=== PATIENT | female | born 1970 | race Caucasian/White ===

== ENCOUNTER 2017-09-11 14:54 | Emergency (ER) | payer SELFPAY ==
--- NOTE | 2017-09-11 15:18 | ER ---
Nurse's Notes [facility] Name: Sandy Tran Age: 46 yrs Sex: Female : 1970 Arrival Date: 09/11/2017 Time: 14:59 Bed Waiting Private MD: out of town, doctor Diagnosis: Presentation: 09/11 15:01 Presenting complaint: Patient states: i swallowed a bony part of a chicken that got hj stuck on my lower throat, it wont go down, it happened around yesterday afternoon;. Transition of care: patient was not received from another setting of care. Onset of symptoms was September 11, 2017. Care prior to arrival: None. 15:01 Method Of Arrival: Ambulatory hj 15:01 Acuity: JENNIFER 4 hj Triage Assessment: 15:05 General: Appears in no apparent distress. uncomfortable, Behavior is calm, cooperative, hj appropriate for age. Pain: Complains of pain in throat. 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 2 in. (157.48 cm); Pain 7/10; 15:05 Body Mass Index 38.77 (96.16 kg, 157.48 cm) hj ED Course: 14:59 Patient arrived in ED. mr 14:59 out of town, doctor is Private Physician. mr 15:02 Triage completed. hj 15:05 Arm band placed on left wrist. hj Administered Medications: No medications were administered Outcome: 15:17 Patient left the ED. pt Signatures: Melanie Colón RN RN pt Rosie Barrios mr Gary William RN RN hj Corrections: (The following items were deleted from the chart) 15:07 15:05 Pulse 79bpm; Resp 18bpm; Pulse Ox 100% RA; Temp 98.2F Temporal; 96.16 kg; Height hj 5 ft. 2 in.; BMI: 38.7; Pain 7/10; hj
== END 2017-09-11 15:17 | disposition left against medical advice (07) ==
LOC: ER 14:54
DX: Z53.21 Procedure and treatment not carried out due to patient leaving prior to being seen by health care provider (principal)
CPT/HCPCS: 99281

== ENCOUNTER 2018-06-03 10:47 | Emergency (ER) | payer SELFPAY ==
[2018-06-03] MEDS ORDERED: KETOROLAC 30 MG/ML INJ ONE (11:50)
[2018-06-03 12:13] LABS: Urine Bacteria <20 /HPF (<20); Urine Culture Reflex Order NOT NEEDED; Urine RBC <5 /HPF (NONE SEEN)
[2018-06-03 13:29] LABS: Urine Blood TRACE (NEG); Urine Glucose NEGATIVE (NEG); Urine Protein NEGATIVE (NEG); Urine Specific Gravity 1.025 (1.005-1.030); Urine pH 5.5 (5.0-7.0)
--- NOTE | 2018-06-03 13:36 | RAD REPORT ---
EXAM DESCRIPTION: CT - Abdomen Pelvis W Contrast - 06/03/2018 1:17 pm CLINICAL HISTORY: Abdominal pain. Left lower quadrant pain COMPARISON: None. TECHNIQUE: Computed axial tomography of the abdomen and pelvis was obtained. 100 cc Isovue-300 is ad ministered intravenously. Oral contrast was given. All CT scans are performed using dose optimization technique as appropriate and may include automated exposure control or mA/KV adjustment according to patient size. FINDINGS: The liver, spleen, pancreas, adrenals and kidneys appear unremarkable. The appendix is normal caliber. Diverticula stem from the colon. Moderate stranding is present adjacent to the sigmoid colon with celia rowing of wall. Small amount ascites is present within the pelvis. IMPRESSION: Moderate diverticulitis
[2018-06-03] MEDS ORDERED: FENTANYL CITR 100 MCG/2 ML ONE (14:01)
[2018-06-03] MEDS ORDERED: NA CHLORIDE 0.9% 1,000 ML ONE (14:01)
[2018-06-03] MEDS ORDERED: CEFOXITIN/SWI 1gm 1 GM/10 ML SYR ONE (14:01)
[2018-06-03 14:48] LABS: Absolute Lymphocytes (CBC) 0.9 K/uL (0.7-4.9); Absolute Monocytes 0.5 K/uL (0.1-1.3); Absolute Neutrophil 6.9 K/uL (1.8-8.0); Basophils % 0.2 % (0-1.3); Eosinophils % 0.6 % (0-4.4); Hematocrit 41.3 % (36.0-45.0); Lymphocytes % 11.1 % (15.3-44.8); MPV 10.6 fL (7.6-11.3); Monocytes % 6.3 % (3.3-12.3); RBC Red Blood Cell Count 4.78 M/uL (3.86-4.86)
--- NOTE | 2018-06-03 15:16 | EDPHYS ---
Physician Documentation [facility] Name: Sandy Tran Age: 47 yrs Sex: Female : 1970 Arrival Date: 06/03/2018 Time: 10:52 Bed 28 Private MD: out of town, doctor ED Physician Dov Spicer HPI: 06/03 14:12 The patient presents with abdominal pain in the left lower quadrant. Onset: The gs symptoms/episode began/occurred 2 day(s) ago, and became persistent. The symptoms do not radiate. Associated signs and symptoms: Pertinent negatives: nausea and vomiting, blood in stools, constipation, diarrhea. The symptoms are described as crampy, sharp. Modifying factors: The symptoms are alleviated by nothing, the symptoms are aggravated by nothing. Severity of pain: At its worst the pain was moderate in the emergency department the pain is unchanged. The patient has experienced similar episodes in the past, a few times. 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 - Social history:: Smoking status: Patient/guardian denies using tobacco, Patient uses alcohol. - Ebola Screening: : Patient negative for fever greater than or equal to 101.5 degrees Fahrenheit, and additional compatible Ebola Virus Disease symptoms Patient denies exposure to infectious person Patient denies travel to an Ebola-affected area in the 21 days before illness onset. ROS: 14:12 All other systems are negative. gs Exam: 14:12 Head/Face: Normocephalic, atraumatic. Eyes: Pupils equal round and reactive to light, gs extra-ocular motions intact. Lids and lashes normal. Conjunctiva and sclera are non-icteric and not injected. Cornea within normal limits. Periorbital areas with no swelling, redness, or edema. ENT: Nares patent. No nasal discharge, no septal abnormalities noted. Tympanic membranes are normal and external auditory canals are clear. Oropharynx with no redness, swelling, or masses, exudates, or evidence of obstruction, uvula midline. Mucous membranes moist. Neck: Trachea midline, no thyromegaly or masses palpated, and no cervical lymphadenopathy. Supple, full range of motion without nuchal rigidity, or vertebral point tenderness. No Meningismus. Chest/axilla: Normal chest wall appearance and motion. Nontender with no deformity. No lesions are appreciated. Cardiovascular: Regular rate and rhythm with a normal S1 and S2. No gallops, murmurs, or rubs. Normal PMI, no JVD. No pulse deficits. Respiratory: Lungs have equal breath sounds bilaterally, clear to auscultation and percussion. No rales, rhonchi or wheezes noted. No increased work of breathing, no retractions or nasal flaring. Back: No spinal tenderness. No costovertebral tenderness. Full range of motion. Skin: Warm, dry with normal turgor. Normal color with no rashes, no lesions, and no evidence of cellulitis. MS/ Extremity: Pulses equal, no cyanosis. Neurovascular intact. Full, normal range of motion. Neuro: Awake and alert, GCS 15, oriented to person, place, time, and situation. Cranial nerves II-XII grossly intact. Motor strength 5/5 in all extremities. Sensory grossly intact. Cerebellar exam normal. Normal gait. 14:12 Constitutional: The patient appears alert, awake. 14:12 Abdomen/GI: Palpation: moderate abdominal tenderness, in the left lower quadrant, rebound tenderness, is not appreciated. Vital Signs: 10:56 BP 105 / 57; Pulse 83; Resp 18; Temp 98.8(TE); Pulse Ox 100% on R/A; Weight 95.71 kg; hj Height 5 ft. 2 in. (157.48 cm); Pain 7/10; 12:00 BP 120 / 53; Pulse 71; Resp 16 S; Pulse Ox 97% on R/A; Pain 4/10; jl7 12:43 BP 115 / 63; Pulse 66; Resp 16 S; Pulse Ox 97% on R/A; jl7 14:00 BP 113 / 52; Pulse 65; Resp 16 S; Pulse Ox 100% on R/A; Pain 4/10; jl7 16:27 BP 116 / 65; Pulse 64; Resp 16 S; Pulse Ox 100% on R/A; Pain 3/10; jl7 10:56 Body Mass Index 38.59 (95.71 kg, 157.48 cm) hj MDM: 11:30 Patient medically screened. gs 14:12 Differential diagnosis: bowel obstruction, diverticulitis, non-specific abd pain, gs urinary tract infection. Data reviewed: vital signs, nurses notes, lab test result(s), radiologic studies. Counseling: I had a detailed discussion with the patient and/or guardian regarding: the historical points, exam findings, and any diagnostic results supporting the discharge/admit diagnosis, radiology results, the need for outpatient follow up. Response to treatment: the patient's symptoms have markedly improved after treatment. 06/03 10:54 Order name: Urine Culture [facility] 06/03 10:54 Order name: Urine Microscopic Only; Complete Time: 13:39 w 06/03 11:34 Order name: CBC with Diff; Complete Time: 15:14 gs 06/03 11:34 Order name: Basic Metabolic Panel; Complete Time: 13:39 gs 06/03 12:31 Order name: Urine Dipstick--Ancillary (enter results); Complete Time: 13:39 eb 06/03 12:31 Order name: Urine --Ancillary (enter results); Complete Time: 13:39 eb 06/03 10:54 Order name: Urine Dipstick-Ancillary (obtain specimen); Complete Time: 11:52 w 06/03 11:34 Order name: CT Abd/Pelvis - W/Contrast; Complete Time: 13:39 gs Administered Medications: 11:48 Drug: TORadol 30 mg Route: IVP; Site: right antecubital; ls4 11:52 Follow up: Response: No adverse reaction; Pain is decreased jl7 12:10 Follow up: Response: No adverse reaction; Pain is decreased ls4 13:58 Drug: fentaNYL (PF) 25 mcg Route: IVP; Site: right antecubital; ls4 14:30 Follow up: Response: No adverse reaction; Pain is decreased jl7 14:01 Drug: cefOXitin 1 grams Route: IVPB; Infused Over: 30 mins; Site: right antecubital; ls4 14:30 Follow up: Response: No adverse reaction; IV Status: Completed infusion jl7 Disposition: 06/03/18 15:15 Discharged to Home. Impression: Diverticular disease of large intestine without perforation or abscess. - Condition is Stable. - Discharge Instructions: Diverticulitis, [id number]. - Prescriptions for Flagyl 500 mg Oral Tablet - take 1 tablet by ORAL route every 6 hours for 10 days; 40 tablet. Keflex 500 mg Oral Capsule - take 1 capsule by ORAL route every 6 hours for 10 days; 40 capsule. Tylenol- Codeine #4 300-60 mg Oral Tablet - take 1 tablet by ORAL route every 6 hours As needed; 12 tablet. - Medication Reconciliation Form, Thank You Letter, Antibiotic Education, Prescription Opioid Use form. - Follow up: Hosea Lu MD; When: 2 - 3 days; Reason: Re-evaluation by your physician. Signatures: Dispatcher [employer] EDMS Colleen Kumar, LINK ASSEMBLER-C LINK ASSEMBLER-Csnw Gary William, RN RN hj Yaneth Garvey RN RN jl7 Dov Spicer MD MD Caitlin Soriano RN RN ls4 Corrections: (The following items were deleted from the chart) 16:29 15:15 06/03/2018 15:15 Discharged to Home. Impression: Diverticular disease of large jl7 intestine without perforation or abscess. Condition is Stable. Forms are Medication Reconciliation Form, Thank You Letter, Antibiotic Education, Prescription Opioid Use. Follow up: Hosea Lu; When: 2 - 3 days; Reason: Re-evaluation by your physician. gs
--- NOTE | 2018-06-03 15:16 | ER ---
Nurse's Notes [facility] Name: Sandy Tran Age: 47 yrs Sex: Female : 1970 Arrival Date: 06/03/2018 Time: 10:52 Bed 28 Private MD: out of town, doctor Diagnosis: Diverticular disease of large intestine without perforation or abscess Presentation: 06/03 10:52 Presenting complaint: Patient states: 2 days ago, i started pain on my L groin area, L hj lower abd; and it went bad yesterday, reports vomiting x 7, fever, and i felt swelling on that area; took hydrocodone last night around 11:30pm;. Transition of care: patient was not received from another setting of care. Onset of symptoms was June 03, 2018. Risk Assessment: Do you want to hurt yourself or someone else? Patient reports no desire to harm self or others. Initial Sepsis Screen: Does the patient meet any 2 criteria? No. Patient's initial sepsis screen is negative. Does the patient have a suspected source of infection? No. Patient's initial sepsis screen is negative. Care prior to arrival: None. 10:52 Method Of Arrival: Ambulatory 10:52 Acuity: JENNIFER 3 hj Triage Assessment: 10:55 General: Appears in no apparent distress. uncomfortable, Behavior is calm, cooperative, hj appropriate for age. Pain: Complains of pain in abdomen Pain currently is 7 out of 10 on a pain scale. 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 - Social history:: Smoking status: Patient/guardian denies using tobacco, Patient uses alcohol. - Ebola Screening: : Patient negative for fever greater than or equal to 101.5 degrees Fahrenheit, and additional compatible Ebola Virus Disease symptoms Patient denies exposure to infectious person Patient denies travel to an Ebola-affected area in the 21 days before illness onset. Screenin:55 Abuse screen: Denies threats or abuse. Denies injuries from another. Nutritional hj screening: No deficits noted. Tuberculosis screening: No symptoms or risk factors identified. Fall Risk None identified. Assessment: 11:35 General: Appears in no apparent distress. uncomfortable, Behavior is calm, cooperative, jl7 appropriate for age. Pain: Complains of pain in left lower quadrant Pain radiates to anterior aspect of left lateral abdomen Pain currently is 7 out of 10 on a pain scale. at worst was 10 out of 10 on a pain scale. Quality of pain is described as sharp, Pain began 2 weeks ago Is continuous. Neuro: Level of Consciousness is awake, alert, obeys commands, Oriented to person, place, time, situation. Cardiovascular: Patient's skin is warm and dry. Respiratory: Airway is patent Respiratory effort is even, unlabored, Respiratory pattern is regular, symmetrical. GI: Reports nausea, vomiting, Patient currently denies diarrhea. : No signs and/or symptoms were reported regarding the genitourinary system. EENT: No signs and/or symptoms were reported regarding the EENT system. Derm: Skin is pink, warm \T\ dry. Musculoskeletal: No signs and/or symptoms reported regarding the musculoskeletal system. 12:43 Reassessment: Pt laying in bed with eyes closed, respirations even and unlabored, no jl7 signs of distress noted at this time. 14:00 Reassessment: Patient appears in no apparent distress at this time. No changes from jl7 previously documented assessment. Patient and/or family updated on plan of care and expected duration. Pain level reassessed. Patient is alert, oriented x 3, equal unlabored respirations, skin warm/dry/pink. 15:41 Reassessment: Pt will be discharged once fluids are done infusing. jl7 Vital Signs: 10:56 BP 105 / 57; Pulse 83; Resp 18; Temp 98.8(TE); Pulse Ox 100% on R/A; Weight 95.71 kg; hj Height 5 ft. 2 in. (157.48 cm); Pain 7/10; 12:00 BP 120 / 53; Pulse 71; Resp 16 S; Pulse Ox 97% on R/A; Pain 4/10; jl7 12:43 BP 115 / 63; Pulse 66; Resp 16 S; Pulse Ox 97% on R/A; jl7 14:00 BP 113 / 52; Pulse 65; Resp 16 S; Pulse Ox 100% on R/A; Pain 4/10; jl7 16:27 BP 116 / 65; Pulse 64; Resp 16 S; Pulse Ox 100% on R/A; Pain 3/10; jl7 10:56 Body Mass Index 38.59 (95.71 kg, 157.48 cm) hj ED Course: 10:52 Patient arrived in ED. sb2 10:52 out of town, doctor is Private Physician. sb2 10:54 Triage completed. hj 10:55 Arm band placed on right wrist. hj 10:55 Patient has correct armband on for positive identification. Placed in gown. Bed in low hj position. Call light in reach. Side rails up X 1. 11:17 Yaneth Garvey, JULIA is Primary Nurse. jl7 11:18 Dov Spicer MD is Attending Physician. gs 11:35 Pulse ox on. NIBP on. jl7 11:49 Initial lab(s) drawn, by me, sent to lab. Urine collected: clean catch specimen. ls4 Inserted saline lock: 20 gauge in right antecubital area, using aseptic technique. Blood collected. 13:12 CT completed. Patient tolerated procedure well. Patient moved to CT via stretcher. jg6 Patient moved back from CT. 13:[address] jg6 13:18 CT Abd/Pelvis - W/Contrast In Process Unspecified. EDMS 15:14 Hosea Lu MD is Referral Physician. gs 16:27 No provider procedures requiring assistance completed. IV discontinued, intact, jl7 bleeding controlled, No redness/swelling at site. Pressure dressing applied. Administered Medications: 11:48 Drug: TORadol 30 mg Route: IVP; Site: right antecubital; ls4 11:52 Follow up: Response: No adverse reaction; Pain is decreased jl7 12:10 Follow up: Response: No adverse reaction; Pain is decreased ls4 13:58 Drug: fentaNYL (PF) 25 mcg Route: IVP; Site: right antecubital; ls4 14:30 Follow up: Response: No adverse reaction; Pain is decreased jl7 14:01 Drug: cefOXitin 1 grams Route: IVPB; Infused Over: 30 mins; Site: right antecubital; ls4 14:30 Follow up: Response: No adverse reaction; IV Status: Completed infusion jl7 Outcome: 15:15 Discharge ordered by . gs 16:27 Discharged to home ambulatory. jl7 16:27 Condition: stable 16:27 Discharge instructions given to patient, Instructed on discharge instructions, follow up and referral plans. medication usage, Demonstrated understanding of instructions, follow-up care, medications, Prescriptions given X 3. 16:29 Patient left the ED. jl7 Signatures: Dispatcher [employer] EDMS Gary William, RN RN hj Yaneth Garvey RN RN jl7 oDv Spicer MD MD gs Billeau, Sheri sb2 Garcia, Jessica j6 Caitlin Soriano RN RN ls4 Corrections: (The following items were deleted from the chart) 10:58 10:56 Pulse 83bpm; Resp 18bpm; Pulse Ox 100% RA; Temp 98.8F Temporal; 95.71 kg; Height hj 5 ft. 2 in.; BMI: 38.5; Pain 10; hj
== END 2018-06-03 16:29 | disposition home or self-care (01) ==
LOC: ER 10:47
DX: K57.30 Diverticulosis of large intestine without perforation or abscess without bleeding (principal)
CPT/HCPCS: 36415; 74177; 80048; 81003; 81015; 81025; 85025; 87086; 87088; 96365; 96375; 99284; J3010; J7030; Q9967